=== PATIENT | male | born 1990 ===

== ENCOUNTER 2018-08-10 11:35 | Emergency (ER) | payer OTHER ==
[~2018-08-10] VITALS: Ht 170.2 cm; Wt 68.2 kg
[2018-08-10 11:40] VITALS: BP 122/74; TEMP 96.7
[2018-08-10] MEDS ORDERED: LIDODERM 5% PATC1 EA TP (12:46)
[2018-08-10] MEDS ORDERED: FLEXERIL 1010 MG/TAB PO (12:46)
[2018-08-10 13:10] VITALS: PULSE 75
== END 2018-08-10 13:10 | disposition home or self-care (01) ==
LOC: COL.ER 11:35
DX: M54.41 Lumbago with sciatica, right side (principal); F17.210 Nicotine dependence, cigarettes, uncomplicated
CPT/HCPCS: J1885; J2360